=== PATIENT | male | born 1975 | race Caucasian/White ===

== ENCOUNTER 2020-02-28 16:07 | Emergency (ER) | payer MEDICARE, OTHER, SELFPAY ==
[2020-02-28] VITALS (7 sets, daily range): BP systolic 101–191; BP diastolic 56–126; PULSE 71–122; RESP 17–24; TEMP 36.7; O2SAT 97–100; BMI 28.5
--- NOTE | 2020-02-28 16:20 | CT_ITS ---
PROCEDURE: CT ABDOMEN PELVIS WO CON CLINICAL INDICATION: HX RENAL FAILURE, FLANK PAIN, DECREASED UOP COMPARISON: No exams were available for comparison TECHNIQUE: Axial images obtained with sagittal and coronal reformats. All CT scans at the facility use one or more dose reduction, viz: automated exposure control, ma/kV adjustment per patient size (including targeted exams where dose is matched to indication, i.e. head), or iterative reconstruction technique. FINDINGS: There is marked generalized motion artifact which does obscure fine detail. There is no hydronephrosis. Gas-filled loops of small and large bowel are present. One cannot exclude the possibility of underlying pathology based on the quality of the exam. Gas is present in the rectum. No definite intestinal obstruction. The appendix is not identified. The liver and spleen are grossly unremarkable. Patient may have had a prior gastric bypass. The liver, spleen, gallbladder, and pancreas are grossly unremarkable. There is a sclerotic lesion involving the left proximal femur just distal to the greater trochanter. Lucency is noted in the proximal right femur. There are mildly prominent bilateral inguinal lymph nodes IMPRESSION: 1. Images degraded by motion artifact. Subtle abnormalities may not be demonstrated. 2. Moderate amount of gas in large and small bowel 3. Enlarged inguinal lymph nodes 4. Consider repeat exam when patient can tolerate and remain still. Dictated by: Dipesh Encarnacion MD 02/28/2020 21:40 Electronically signed by Dipesh Encarnacion MD in [place] 02/28/2020 21:40
[2020-02-28 16:36] LABS: Basophils % 0.5 % (0.1-2.0); Eosinophils # 0.1 K/mm3 (0.0-0.4); Eosinophils % 0.6 % (0.1-12.0); Hematocrit 29.7 % (42.0-52.0); Hemoglobin 9.7 g/dL (14.1-18.0); Lymphocytes # 1.7 K/mm3 (0.7-4.5); Lymphocytes % 20.2 % (10-50); Mean Corpuscular HGB Conc 32.6 g/dL (31.8-35.4); Mean Corpuscular Hemoglobin 26.4 pg (27.0-31.2); Monocytes # 0.5 K/mm3 (0.1-1.0); Monocytes % 6.3 % (1.7-9.3); Neutrophils % 72.4 % (37.0-80.0); Platelet Count 479 K/mm3 (142-424); Red Blood Count 3.66 M/mm3 (4.60-6.20); Red Cell Distribution Width 17.5 % (11.5-17.5); White Blood Count 8.2 K/mm3 (4.8-10.8)
[2020-02-28 16:38] LABS: Chloride 105 mmol/L (98-107)
[2020-02-28 16:39] LABS: Sodium 137 mmol/L (136-145)
[2020-02-28 16:41] LABS: Alanine Aminotransferase 84 U/L (12-78); Alkaline Phosphatase 131 U/L (38-126); Aspartate Amino Transferase 84 U/L (17-59); Bilirubin,Total 1.7 mg/dl (0.2-1.3); Blood Urea Nitrogen 21 mg/dl (9-20); Creatinine Clearance Estimated 89 mL/min (50-200); Estimated Glomerular Filt Rate 55 ml/min (>60); GFR (African American) 66 ML/MIN (>60)
[2020-02-28 16:42] LABS: Albumin Level 4.4 g/dl (3.5-5.0); Albumin/Globulin Ratio 1.3 (1.1-1.8); Calcium 9.2 mg/dl (8.4-10.2); Carbon Dioxide 18 mmol/L (22.0-30.0); Creatine Kinase 508 U/L (55-170); Globulin 3.5 g/dL (1.3-3.2); Glucose 88 mg/dl (74-100); Total Protein,Serum 7.9 g/dl (6.3-8.2)
[2020-02-28 17:14] LABS: Microscopic, Urine URINE MICROSCOPIC (MICROSCOPIC)
[2020-02-28 17:18] LABS: Appearance,Urine CLEAR (Clear); Bilirubin,Urine Negative (Negative); Blood, Urine Negative (Negative); Color,Urine YELLOW (Yellow); Glucose,Urine (UA) Negative (Negative); Ketones,Urine 1+ (Negative); Leukocyte Esterase,Urine Negative (Negative); Nitrate,Urine Negative (Negative); Protein,Urine Negative (Negative)
[2020-02-28 17:28] LABS: RBC,Urine Occasional #/hpf (0-3); WBC,Urine Occasional #/hpf (0-3)
[2020-02-28 17:43] LABS: Benzodiazepines Screen,Urine Negative ng/ml (<200)
[2020-02-28 17:44] LABS: Barbiturates Screen,Urine Negative ng/ml (<200)
[2020-02-28 17:45] LABS: Methadone Screen,Urine Negative ng/ml (<300)
[2020-02-28 17:46] LABS: Cannabinoid Screen,Urine Negative ng/ml (<50); Cocaine Screen,Urine Negative ng/ml (<300)
[2020-02-28 17:47] LABS: Opiate Screen,Urine Positive ng/ml (<300)
[2020-02-28 17:48] LABS: Phencyclidine Screen,Urine Negative ng/ml (<25)
--- NOTE | 2020-02-28 17:53 | [facility].EDABDPAI ---
ED Disposition Clinical Impression: Gastroenteritis, Abdominal pain Disposition: Home, Self-Care Condition on Discharge: Good Instructions: DI for Acute Abdomen Additional Instructions: Please follow-up with your primary care provider - Critical Care Critical Care Time: No Attestation: On , the high probability of a clinically significant, sudden or life threatening deterioration of the following system(s) required my full and direct attention, intervention and personal management. The time I documented below is in addition to time spent performing reported procedures but includes the following listed in this critical care notation. Medical Decision Making - Medical Records Medical records reviewed: Yes: I reviewed the patient's medical records. - Chris Inquiry Pt receiving controlled substance: No Vital Signs: 02/28/20 16:12 02/28/20 17:11 02/28/20 17:39 Temperature 98.1 F Temperature Source Oral Pulse Rate [Right Radial] 122 H 116 H 106 H Respiratory Rate 24 24 20 Blood Pressure [Right Arm] 139/77 191/106 H 158/126 H Blood Pressure Mean [Right Arm] 97 134 136 Blood Pressure Source [Right Arm] Automatic Cuff Automatic Cuff Automatic Cuff Blood Pressure Position [Right Arm] Supine Supine Supine 02 Sat by Pulse Oximetry 100 100 99 Oxygen Delivery Method Room Air Room Air - Lab Data Lab results reviewed: Yes: I reviewed the patient's lab results. Lab Results 02/28/20 16:25: WBC 8.2, RBC 3.66 L, Hgb 9.7 L, Hct 29.7 L, MCV 81.0, MCH 26.4 L, MCHC 32.6, RDW 17.5, Plt Count 479 H, MPV 7.0 L, Neut % (Auto) 72.4, Lymph % (Auto) 20.2, [place] % (Auto) 6.3, Eos % (Auto) 0.6, Baso % (Auto) 0.5, Neut # (Auto) 6.0, Lymph # (Auto) 1.7, [place] # (Auto) 0.5, Eos # (Auto) 0.1, Baso # (Auto) 0.0 02/28/20 16:25: Sodium 137, Potassium 4.0, Chloride 105, Carbon Dioxide 18 L, Anion Gap 18.0 H, BUN 21 H, Creatinine 1.40 H, Estimated Creat Clear 89, Estimated GFR 55 L, Est GFR ( Amer) 66, Glucose 88, Calcium 9.2, Total Bilirubin 1.7 H, AST 84 H, ALT 84 H, Alkaline Phosphatase 131 H, Total Creatine Kinase 508 H*, Total Protein 7.9, Albumin 4.4, Globulin 3.5 H, Albumin/Globulin Ratio 1.3 02/28/20 17:10: Urine Color Yellow, Urine Appearance Clear, Urine pH 6.0, Ur Specific [place] 1.020, Urine Protein Negative, Urine Glucose (UA) Negative, Urine Ketones 1+, Urine Blood Negative, Urine Nitrate Negative, Urine Bilirubin Negative, Urine Urobilinogen 1.0, Ur Leukocyte Esterase Negative, Urine RBC Occasional, Urine WBC Occasional, Ur Squamous Epith Cells 3-5, Urine Bacteria None, Hyaline Casts 3-5 02/28/20 17:10: Urine Opiates Screen Positive H, Urine Methadone Screen Negative, Ur Barbituates Screen Negative, Ur Phencyclidine Scrn Negative, U Benzodiazepines Scrn Negative, Urine Cocaine Screen Negative, U Marijuana (THC) Screen Negative Result diagrams: 02/28/20 16:25 02/28/20 16:25 Orders (Tests/Meds): ED MEDICATIONS Discontinued Medications Generic Name Dose Route Start Last Admin Trade Name Guan[place]itoq PRN Reason Stop Dose Admin Sodium Chloride 1,000 mls @ 999 mls/hr 02/28/20 16:24 02/28/20 17:13 Sod Chlor 0.9% 1000ml Bag IV 02/28/20 17:24 999 mls/hr .Q1H1M ONE Administration Ketamine HCl 50 mg 02/28/20 16:25 02/28/20 17:10 Ketamine 500mg/10ml Vial IV 02/28/20 16:26 50 mg ONCE ONE Administration Morphine Sulfate 4 mg 02/28/20 16:48 02/28/20 16:50 Morphine 4mg/Ml Syringe IV 02/28/20 16:49 4 mg ONCE ONE Administration Ondansetron HCl 4 mg 02/28/20 16:24 02/28/20 17:13 Zofran 4mg/2ml Vial IV 02/28/20 16:25 4 mg ONCE ONE Administration ORDERS Category Date Time Status CT abdomen pelvis wo con Stat Cat Scan 02/28/20 16:20 Taken CK, Total+Isoenzymes Stat Lab 02/28/20 16:25 Received UDS [Drug Screen,Urine] Stat Lab 05/22/20 17:10 Results - CT Data CT Scan: Abdomen, Pelvis Time Received: 17:[address] Reviewed: Yes: I have reviewed the patient's CT results, I have v
[2020-02-28 18:19] LABS: Amphetamine/Metha Screen,Urine Positive ng/ml (<1000)
--- NOTE | 2020-02-28 18:45 | PC.NURSE ---
PT D/C DELAYED D/T TRYING TO FIND TRANSPORTATION HOME.
[2020-03-02 14:28] LABS: CK-MB 1 % (0-3); CK-MM 98 % (97-100); Macro Type 2 0 % (Not Observed)
[2020-03-02 17:26] LABS: Creatine Kinase,Total,Serum 516 U/L (49-439)
[2020-03-02 17:27] LABS: CK-BB 0 % (0); Macro Type 1 1 % (Not Observed)
== END 2020-02-28 21:53 | disposition home or self-care (01) ==
PROVIDERS: Emergency Provider Family Medicine
DX: K52.9 Noninfective gastroenteritis and colitis, unspecified (principal); N17.9 Acute kidney failure, unspecified; F17.210 Nicotine dependence, cigarettes, uncomplicated; F11.20 Opioid dependence, uncomplicated
CPT/HCPCS: 74176; 80053; 80305; 81001; 82550; 82552; 85025; 96365; 96375; 99284; J2405